=== PATIENT | female | born 1990 | race Caucasian/White ===

== ENCOUNTER 2019-04-04 19:00 | Inpatient (IN) | payer BC, OTHER, SELFPAY ==
[2019-04-04 19:33] VITALS: BMI 33.6
[2019-04-04] MEDS: Lactated Ringers 1,000 ML 50 ML IV (20:00)
[2019-04-04 20:25] LABS: Absolute Lymphocyte Count 1.85 X10^3/uL (0.83-4.51); Absolute Neutrophil Count 8.1 X10^3/uL (2.0-7.7); Basophil# 0.04 X10^3/uL; Basophil% 0.4 % (0-1); Eosinophil# 0.06 X10^3/uL; Eosinophils% 0.5 % (0-5); Hematocrit 33.8 % (37-47); Hemoglobin 11.1 g/dL (12.0-15.0); Lymphocyte # 1.85 X10^3/ul (4.0); Lymphocyte % 16.5 % (19-41); Mean Corp Hgb Conc 32.8 g/dL (32-36); Mean Corpuscular Hgb 27.9 pg (27.0-32.0); Mean Corpuscular Volume 84.9 fL (81-99); Mean Platelet Vol. 9.4 fl (6.2-12.0); Monocyte# 1.01 X10^3/uL; NRBC Flagged by Analyzer 0 % (0-5); Neutrophil # 8.07 X10^3/uL (2.7-7.7); Neutrophil % 72.3 % (47-70); Platelet Count 252 K/mm3 (150-450); RBC Distribution Width CV 14.5 % (11.6-14.6); RBC Distribution Width SD 44.1 fl (35.1-43.9); Red Blood Count 3.98 M/mm3 (4.2-5.4); White Blood Count 11.2 K/mm3 (4.4-11.0)
[2019-04-04] MEDS: miSOPROStol 25 MCG TABLET VAGINAL (20:27)
[2019-04-05] MEDS: miSOPROStol 25 MCG TABLET VAGINAL (00:57)
[2019-04-05] MEDS: 0.9% Normal Saline Single 100 ML IV.SOLN. IY (04:06)
--- NOTE | 2019-04-05 04:12 | HP.PCM_ITS ---
- Problem List (1) Elective induction of labor planned Status: Acute (2) Obesity affecting Status: Acute History Date of Admission: 04/04/19 Final MIRTHA: 04/01/19 Final MIRTHA Source: US <20 weeks Gestational age: 40 Weeks and 4 Days History of this : This is a 29 year-old, G [1], P [0000], at 40 weeks 4 days gestational age for elective induction of labor. No obstetrical complications. Allergies Penicillins [PCN] Allergy (Verified 04/04/19 19:34) Rash Home Medications: Home Medications No122/Iron/Folic Acid [ Multi Tablet] 1 tab PO DAILY 04/04/19 Smoking Status: Never smoker Alcohol: None Number of Fetus(es): 1 NST - FHR Rate Baby A Baseline: 135 Variability:: Moderate Accelerations:: 15 x 15 Decelerations:: None FHR Category:: Category I Uterine Activity:: None History Past Pregnancies: Past Pregnancies Delivery Date Name GA/ Weeks Outcome Route Wt Sex Labor Length Anesthesia Delivery Location Provider FOB Labs: Mom's Labs & Results 04/04/19 04/04/19 20:00 20:00 WBC 11.2 H RBC 3.98 L Hgb 11.1 L Hct 33.8 L MCV 84.9 MCH 27.9 MCHC 32.8 RDW Std Deviation 44.1 H RDW Coeff of Ang 14.5 Plt Count 252 MPV 9.4 Immature Gran % (Auto) 1.300 H Neut % (Auto) 72.3 H Lymph % (Auto) 16.5 L [place] % (Auto) 9.0 Eos % (Auto) 0.5 Baso % (Auto) 0.4 Absolute Neuts (auto) 8.1 H Absolute Lymphs (auto) 1.85 Nucleated RBC % 0 Blood Type O POSITIVE Antibody Screen NEGATIVE Course Did the patient receive Yes care? Labs Blood Type: O RH: POSITIVE RPR/VDRL/Syphilis Nonreactive Rubella status Immune HbSAg Negative Date Done: 09/17/18 Chlamydia Negative Gonorrhea Negative HIV/AIDS Non-Reactive Group B Strep: Negative Current Obstetrical History Gestational Diabetes No Incompetent Cervix No Infertility No IUGR No Macrosomia No Hypertension/Pre-eclampsia No Placenta Previa/Abruption No PTL/PROM No Uterine anomaly No Oligohydramnios No Polyhydramnios No Multiple gestation No Past Medical History Asthma No Diabetes No Hypertension No Heart disease No Mitral valve prolapse No Neurologic/Seizure disorder/ No Migraines Kidney disease No Liver disease No Varicosities No Clotting disorders/Hx of DVT No Thyroid Dysfunction No Other medical diseases No Psychiatric disorders No Major trauma No Abnormal PAP smear No Sleep apnea No Mammogram in the last 2 years No Social History Marital Status: Alleged father haile Hx Smoking No Smoking Status Never smoker How long have you used n/a substances (years)? Expected Delivery Method: Spontaneous Vaginal Review of Systems Constitutional: Denies: Chills, Fever, Weight Change HEENT: Denies: Head Aches, Sinus Congestion, Sinus Drainage Cardiovascular: Denies: Chest Pain, Palpitations Respiratory: Denies: Cough, Shortness of breath at rest, Sputum production Gastrointestinal: Denies: Abdominal Pain, Nausea, Vomiting Genitourinary: Denies: Dysuria Neurological: Denies: Numbness, Tingling, Focal weakness Psychiatric: Denies: Anxiety, Depression, Homicidal Ideations, Suicidal Ideations Physical Exam General: Alert, Oriented x3, Cooperative HEENT: Atraumatic, Normocephalic Cardiovascular: Regular rate, Regular Rhythm, No murmurs Lungs: Clear to auscultation, Normal air movement, No rhonchi, No wheeze Abdomen: Gravid Extremities:: No edema Neurological: Deep Tendon Reflexes 2+/4 and Symmetrical. Negative for: Clonus PLASTIC SURGERY ASSISTANT: Normal external genitalia Estimated gestational size: Appropriate for gestational size Presentation: Cephalic Cervix Dilation (cm): 3 - Soliman catheter placed through cervical os without complications. Station: -2 Effacement (%): 60 Assessment/Plan All Active Problems Elective induction of labor planned (Acute) Obesity affecting (Acute) This is a 29 year-old, G [1], P [000], at 40 weeks 4 Days gestational age. A: Elective Induction of Labor at Term Obesity in P: 1) Admit to labor and delivery. Routine labs. BP elevated, will draw preeclampsia labs 2) IV saline lock 3) Vaginal cytotec for cervical ripening. Soliman catheter placed after 2 doses of cytotec. Will start Pitocin 4 hrs after last cytotec dose. 4) notified of admission and patient status. 5) Planning epidural for pain management 6) GBS negative
[2019-04-05] MEDS: Oxytocin 30 units/NS 500 ml 30 UNITS/500 ML IV.SOLN IV (06:25)
[2019-04-05 07:59] LABS: Hematocrit 35.3 % (37-47); Hemoglobin 11.5 g/dL (12.0-15.0); Mean Corp Hgb Conc 32.6 g/dL (32-36); Mean Corpuscular Hgb 27.6 pg (27.0-32.0); Mean Corpuscular Volume 84.7 fL (81-99); Mean Platelet Vol. 9.3 fl (6.2-12.0); Platelet Count 241 K/mm3 (150-450); RBC Distribution Width CV 14.5 % (11.6-14.6); RBC Distribution Width SD 44.7 fl (35.1-43.9); Red Blood Count 4.17 M/mm3 (4.2-5.4); White Blood Count 12.3 K/mm3 (4.4-11.0)
[2019-04-05 08:11] LABS: AST(SGOT) 14 U/L (15-37); Alanine Aminotransfer ALT/SGPT 15 U/L (13-56); Creatinine, Serum 0.56 mg/dL (0.55-1.02); EST Glomerular Filtration Rate 138 mL/min (>60); Est Glom Filt Rate - Afr Amer 167 mL/min (>60); Estimated Creatinine Clearance 123.72 ml/min; Uric Acid 4.3 mg/dL (2.6-6.0)
[2019-04-05 08:13] LABS: Prothrombin Time (Protime)PT. 13.3 SECONDS (11.7-14.9)
[2019-04-05 08:14] LABS: Partial Thromboplast Time 25.1 Seconds (24.1-36.2)
[2019-04-05] MEDS: Lactated Ringers 500 ML 999 ML IV ×2 (08:56→09:48)
[2019-04-05] MEDS: fentaNYL-bupivacaine (epidural) 100 ML BAG EPIDURAL (09:20)
[2019-04-05] MEDS: Lactated Ringers 1,000 ML 200 ML IV (11:45)
[2019-04-05] MEDS: Oxytocin 30 units/NS 500 ml 30 UNITS/500 ML IV.SOLN 334 UNITS IV (14:15)
--- NOTE | 2019-04-05 14:25 | PCM.OPRPT ---
Vaginal Delivery Maternal Presentation: Elective Induction Method of Induction: Pitocin, Soliman Bulb, Amniotomy, Cytotec Medical Reason for Induction: - - full term Amniotic Membrane Rupture Type: Artificial Amniotic Fluid Description: Clear Final MIRTHA: 04/01/19 Final MIRTHA Source: US <20 weeks Gestational age: 40 Weeks and 4 Days Date of Procedure: 04/05/19 Pre-Operative Diagnosis: labor Post-Operative Diagnosis: same Surgery/ Procedure Performed: Spontaneous Vaginal Delivery Type of Anesthesia: Epidural Description of Procedure: A vigorous female was delivered ROSALIA over a second-degree vaginal laceration. The remainder the was delivered with maternal pushing and gentle traction only in less than 15 seconds. The Pitocin infusion was initiated for active management of the third stage. The cord was clamped and cut after 1 minute. The infant was attended to by the waiting nursing staff. The placenta was delivered spontaneously and intact. The cervix and vagina were intact. The second-degree perineal laceration was repaired with 3-0 Vicryl suture in a running standard fashion. Sponge and needle counts were correct. A vaginal sweep was completed by me. Presentation: ROSALIA Placental Delivery Description: Spontaneous Placenta Disposition: [facility] Cord Vessel Description: 3 Vessels Cord Entanglement: None Drain: Soliman to straight drain Estimated Blood Loss: 400 Infant A gender: Female (1 minute): 9 (5 minute): 9 Episiotomy Description: None Laceration: 2nd degree - vaginal Medications given after delivery: IV Pitocin Complications: None
[2019-04-05] MEDS: Ondansetron 4 MG/2 ML Vial IV (14:51)
[2019-04-05 20:40] VITALS: BP 132/79; PULSE 102; RESP 17; TEMP 37.1
[2019-04-05 23:51] VITALS: BP 129/67; PULSE 92; RESP 16; TEMP 37.2
[2019-04-06] MEDS: Naproxen 250 MG Tablet 500 MG PO ×3 (01:19→15:35)
[2019-04-06 04:25] VITALS: BP 135/64; PULSE 89; RESP 16; TEMP 36.4
--- NOTE | 2019-04-06 08:02 | PCM.PN.OB ---
Patient Problems: Active and Suspected Problems Elective induction of labor planned (Acute) Obesity affecting (Acute) Subjective: Pain well controlled. Average lochia. - Physical Exam Vitals/I&O's: Vital Signs Temp Pulse Resp BP 97.6 F L 89 16 135/64 H 04/06/19 04:25 04/06/19 04:25 04/06/19 04:25 04/06/19 04:25 Oxygen Delivery Method Room Air Weight: 86.092 kg Body Mass Index (BMI) 33.6 Intake and Output for Last 24 Hours 04/04/19 04/05/19 04/06/19 23:59 23:59 23:59 Intake Total 3950.79 / 3950.79 Output Total 800 / 800 500 / 500 Balance 3150.79 / 3150.79 -500 / -500 General: Alert, Cooperative, No apparent distress Laboratory Results 04/05/19 07:45: PT 13.3, INR 1.0, APTT 25.1 04/05/19 07:45: Creatinine 0.56, Estim Creat Clear Calc 123.72, Est GFR (MDRD) Af Amer 167, Est GFR (MDRD) Non-Af 138, Uric Acid 4.3, AST 14 L, ALT 15 Current Medications Acetaminophen (Tylenol) 1,000 mg PO Q8H PRN PRN PRN Reason: Pain Score 1-3/10 Bisacodyl (Dulcolax) 10 mg RECTAL UD PRN PRN Reason: If no BM Dibucaine (Dibucaine) 1 applic TOPICAL TID PRN PRN; Protocol PRN Reason: Discomfort Hydrocortisone (Hytone) 1 applic TOPICAL TID PRN PRN; Protocol PRN Reason: Discomfort Methylergonovine Maleate (Methergine) 0.2 mg IM X1 PRN PRN Reason: Excess bleeding/uterine atony Naproxen (Naprosyn) 500 mg PO Q8H PRN PRN PRN Reason: Pain Score 1-3/10 Last Admin: 04/06/19 01:19 Dose: 500 mg Documented by: Ondansetron HCl (Zofran) 4 mg IV Q4H PRN PRN PRN Reason: Nausea Prochlorperazine Edisylate (Compazine Iv) 10 mg IV Q6H PRN PRN PRN Reason: NAUSEA/VOMITING Senna/Docusate Sodium (Senokot-S, Kiya-Colace) 1 - 2 tablet PO DAILY PRN PRN PRN Reason: Constipation Simethicone (Mylicon) 80 mg PO PCHS PRN PRN Reason: Indigestion/Stomach pain Sodium Chloride () 5 - 15 ml IV UD PRN PRN Reason: SALINE FLUSH Medical Necessity - Tobacco Use Smoking Status: Never smoker Assessment/Plan All Active Problems Elective induction of labor planned (Acute) Obesity affecting (Acute) day #1 status post vaginal delivery. is breast-feeding and doing well. Patient desires discharge home today if okay with pes
--- NOTE | 2019-04-06 08:03 | DCINST_ITS ---
Discharge Diet: No Restrictions Discharge Activity: Return to Normal Activity, May not drive while taking narcotic pain medications., May Shower May resume sexual activity in: 4-6 weeks Additional Activity Instructions:: Nothing in the vagina for 4-6 weeks. You may return to work/school in 6 weeks. Call your doctor if your incision/area has: Continuous Slow Oozing, Sudden Increased Bleeding, Increased Pain/ Swelling, Increased Redness, Foul Smelling Discharge Additional Instructions: If you experience any of the following, contact your healthcare provider. * Bleeding that soaks a pad every hour for 2 hours * Fever 100.4 or higher * Unrelieved incision or abdominal pain * Swelling, redness, discharge or bleeding from your incision or episiotomy site * Your incision begins to separate * Problems urinating (including inability to urinate or burning while urinating). * Visual changes * Severe headache * Flu-like symptoms * Pain or redness in one of both of your breasts * Pain, warmth, tenderness or swelling in your legs, especially the calf area * Frequent nausea and vomiting * Symptoms of depression or anxiety If you experience any of the following, call 911 or go to the nearest Emergency Room. * Chest pain * Problems breathing * Seizure activity * Partial or complete paralysis of a body part, slurred speech, weakness or drooping of the face, or a sudden inability to walk or hold your balance Allergies/Adverse Reactions: Allergies Penicillins [PCN] Allergy (Verified 04/04/19 19:34) Rash Medications to take at Discharge No122/Iron/Folic Acid [ Multi Tablet] 1 tab PO DAILY 04/04/19 Please Follow Up With: Phoebe Cadena MD - [phone] When: Call to make an appointment with your doctor's office in 1-2 adn 6 weeks or as needed Primary Care Physician: Care Physician,No Primary [Primary Care Provider] - Test Results: Test results from this visit will be discussed in further detail at your follow- up appointment, if applicable.
--- NOTE | 2019-04-06 08:03 | PCM.DCVAG ---
Discharge Diet: No Restrictions Discharge Activity: Return to Normal Activity, May not drive while taking narcotic pain medications., May Shower May resume sexual activity in: 4-6 weeks Additional Activity Instructions:: Nothing in the vagina for 4-6 weeks. You may return to work/school in 6 weeks. Call your doctor if your incision/area has: Continuous Slow Oozing, Sudden Increased Bleeding, Increased Pain/ Swelling, Increased Redness, Foul Smelling Discharge Additional Instructions: If you experience any of the following, contact your healthcare provider. Bleeding that soaks a pad every hour for 2 hours Fever 100.4 or higher Unrelieved incision or abdominal pain Swelling, redness, discharge or bleeding from your incision or episiotomy site Your incision begins to separate Problems urinating (including inability to urinate or burning while urinating). Visual changes Severe headache Flu-like symptoms Pain or redness in one of both of your breasts Pain, warmth, tenderness or swelling in your legs, especially the calf area Frequent nausea and vomiting Symptoms of depression or anxiety If you experience any of the following, call 911 or go to the nearest Emergency Room. Chest pain Problems breathing Seizure activity Partial or complete paralysis of a body part, slurred speech, weakness or drooping of the face, or a sudden inability to walk or hold your balance Allergies/Adverse Reactions: Allergies Penicillins [PCN] Allergy (Verified 04/04/19 19:34) Rash Medications to take at Discharge No122/Iron/Folic Acid [ Multi Tablet] 1 tab PO DAILY 04/04/19 Please Follow Up With: Phoebe Cadena MD - [phone] When: Call to make an appointment with your doctor's office in 1-2 adn 6 weeks or as needed Primary Care Physician: Care Physician,No Primary [Primary Care Provider] - Test Results: Test results from this visit will be discussed in further detail at your follow-up appointment, if applicable.
[2019-04-06 09:20] VITALS: BP 120/63; PULSE 95; RESP 16; TEMP 36.3; O2SAT 98
[2019-04-06 12:40] VITALS: BP 132/74; PULSE 80; TEMP 36.3; O2SAT 100
[2019-04-06 16:30] VITALS: BP 128/85; PULSE 73; TEMP 36.4; O2SAT 96
== END 2019-04-06 17:50 | disposition home or self-care (01) | DRG 807 ==
PROVIDERS: Advanced Practice Midwife; Admitting Provider Obstetrics & Gynecology; Referring Provider Obstetrics & Gynecology; Visit Provider Obstetrics & Gynecology
DX: O99.214 Obesity complicating childbirth (principal); E66.9 Obesity, unspecified; O70.1 Second degree perineal laceration during delivery; Z3A.40 40 weeks gestation of pregnancy; Z37.0 Single live birth
CPT/HCPCS: 59025; 59050; 82565; 84450; 84460; 84550; 85025; 85027; 85610; 85730; 86850; 86900; 86901; J7120; J2405

== ENCOUNTER 2021-06-15 06:50 | Inpatient (IN) | payer BC, OTHER, SELFPAY ==
[2021-06-15] VITALS (46 sets, daily range): BP systolic 111–144; BP diastolic 54–92; PULSE 74–108; TEMP 36.6–37.1; O2SAT 81–100; BMI 31.6
[2021-06-15] MEDS: Lactated Ringers 1,000 ML 200 ML IV ×3 (09:35→19:51)
[2021-06-15 09:53] LABS: Absolute Lymphocyte Count 1.78 X10^3/uL (0.83-4.51); Absolute Neutrophil Count 7.4 X10^3/uL (2.0-7.7); Basophil# 0.06 X10^3/uL; Basophil% 0.6 % (0-1); Eosinophil# 0.08 X10^3/uL; Eosinophils% 0.8 % (0-5); Hematocrit 37.2 % (37-47); Lymphocyte # 1.78 X10^3/ul (0.83-4.51); Lymphocyte % 17.6 % (19-41); Mean Corp Hgb Conc 34.9 g/dL (32-36); Mean Corpuscular Hgb 29.3 pg (27.0-32.0); Mean Platelet Vol. 9.7 fl (6.2-12.0); Monocyte# 0.64 X10^3/uL; Monocyte% 6.3 % (0-10); NRBC Flagged by Analyzer 0 % (0-5); Neutrophil # 7.38 X10^3/uL (2.7-7.7); Neutrophil % 73.1 % (47-70); Platelet Count 288 K/mm3 (150-450); RBC Distribution Width CV 14.4 % (11.6-14.6); RBC Distribution Width SD 43.7 fl (35.1-43.9); Red Blood Count 4.43 M/mm3 (4.2-5.4); White Blood Count 10.1 K/mm3 (4.4-11.0)
[2021-06-15] MEDS: 0.9% Normal Saline Single 100 ML IV.SOLN. INTRA-UTER (10:06)
[2021-06-15] MEDS: Oxytocin 30 units/NS 500 ml 30 UNITS/500 ML IV.SOLN IV (12:45)
[2021-06-15] MEDS: Lactated Ringers 500 ML 999 ML IV ×2 (14:04→20:07)
[2021-06-15] MEDS: fentaNYL-bupivacaine (epidural) 100 ML BAG EPIDURAL ×2 (15:39→19:51)
--- NOTE | 2021-06-15 16:14 | PCM.HP.OB ---
HPI - General General Date of Admission: 06/15/21 HPI Narrative GILLIAN GUTIERREZ, is a 31 F 2 para 1-0-0-1 who presents at 39 6/7 weeks 1 day gestation for elective induction of labor. She denies any vaginal bleeding leaking fluid. She has had good movement. has been complicated today by nausea vomiting the first trimester that required medications. Maternal Data Information Final MIRTHA: 06/16/21 PFSH PFSH Medical History no medical history Home Medications [id number] acid 1 tab PO DAILY 04/04/19 [History Last Taken 03/28/19 08:00] Allergy/AdvReac Type Severity Reaction Status Date / Time Penicillins [PCN] Allergy Rash Verified 06/15/21 07:57 Family History no significant family his Surgical History no surgical history Social History Smoking Status: Never smoker History Elective abortions Hx Para 1 Spontaneous abortions Hx # Term Pregnancies Ectopic pregnancies Hx # Pregnancies Multiple births # of living children ROS Constitutional Constitutional: Denies fatigue, fever(s) or malaise Eyes Eyes: Denies change in vision ENT HEENT: Denies dizziness or headache(s) Cardiovascular Cardiovascular: Denies chest pain, dyspnea or lightheadedness Respiratory/Chest Respiratory/Chest: Denies cough or dyspnea Gastrointestinal Gastrointestinal: Denies change in bowel habits Genitourinary Genitourinary: Denies burning urination or genital lesions Integumentary Integumentary: Denies rash Neurologic Neurologic: Denies confusion, dizziness, headache(s), numbness or weakness Vital Signs Vital Signs Vital Signs: 06/15/21 09:11 06/15/21 12:00 06/15/21 12:01 Temperature Temperature Source Temporal Temporal Pulse Rate 82 75 Blood Pressure 144/87 H 122/79 H BP Systolic 144 122 BP Diastolic 87 79 Pulse Ox 06/15/21 13:58 06/15/21 15:14 06/15/21 15:19 Temperature 97.8 F Temperature Source Temporal Pulse Rate 77 74 83 Blood Pressure 131/73 H 144/85 H BP Systolic 131 144 BP Diastolic 73 85 Pulse Ox 99 100 06/15/21 15:24 06/15/21 15:29 06/15/21 15:34 Temperature Temperature Source Pulse Rate 84 91 108 H Blood Pressure 144/92 H 136/85 H 140/82 H BP Systolic 144 136 140 BP Diastolic 92 85 82 Pulse Ox 98 99 99 06/15/21 15:39 06/15/21 15:44 06/15/21 15:49 Temperature 98.0 F Temperature Source Temporal Temporal Pulse Rate 106 H 89 108 H Blood Pressure 132/73 H 131/66 H 132/72 H BP Systolic 132 131 132 BP Diastolic 73 66 72 Pulse Ox 99 99 99 06/15/21 15:54 06/15/21 15:59 06/15/21 16:04 Temperature Temperature Source Pulse Rate 84 86 101 H Blood Pressure 127/67 H 135/69 H BP Systolic 127 135 BP Diastolic 67 69 Pulse Ox 98 98 100 06/15/21 16:09 06/15/21 16:11 Temperature Temperature Source Pulse Rate 91 Blood Pressure BP Systolic BP Diastolic Pulse Ox 99 81 Weight Weight: 80.9 kg Body Mass Index (BMI) 31.6 Physical Exam Const alert and no apparent distress General Appearance: cooperative HEENT normocephalic Resp normal respiratory effort Cardio regular rate GI soft to palpation GI Narrative: gravid, nontender, appropriate for gestational age Extremity no calf tenderness General Extremity: edema Skin no wounds Rashes: No rashes noted Psych activity/motor behavior normal Labs Labs Labs: Blood Type O POSITIVE Antibody Screen NEGATIVE Hct 37.2 % (37-47) Hgb 13.0 g/dL (12.0-15.0) Rhogam given: No Assessment & Plan (1) Elective induction of labor planned: (2) 39 weeks gestation of : PLAN: Risk benefits and alternatives to induction labor him discussed with patient, questions were answered to her satisfaction she desires to proceed. Estimated weight is less than 4500 g clinically and pelvis clinically adequate to expect vaginal delivery. May have epidural, IV medications or nitrous as needed for pain control. At approximately 10:30 AM a Soliman catheter was placed over the cervix in the usual sterile fashion over a stylette. The bulb was inflated to 30 cc and the patient and fetus tolerated the procedure well. Soliman is out now patient is comfortable with epidural artificial rupture of membranes was performed with return of moderate amount of clear fluid. (3) Encounter for supervision of other normal , third trimester:
[2021-06-15] MEDS: Amnioinfusion- 0.9% NS 1,000 ML IV.SOLN. 1000 ML INTRA-UTER (21:16)
[2021-06-15] MEDS: Oxytocin 30 units/NS 500 ml 30 UNITS/500 ML IV.SOLN 334 UNITS IV (22:27)
--- NOTE | 2021-06-15 22:34 | EX.PCM.OBRPT ---
Assessment & Plan (1) 39 weeks gestation of : (2) (spontaneous vaginal delivery): Maternal Data Information Final MIRTHA: 06/16/21 Gestational age: 39 6/7 Vaginal Delivery Maternal Presentation Maternal Presentation: Elective Induction Type of Induction: Pitocin, Soliman Bulb and Amniotomy Operative Information Date of Procedure: 06/15/21 Pre-Operative Diagnosis: labor Post-Operative Diagnosis: same Surgery / Procedure Performed: Spontaneous Vaginal Delivery Type of Anesthesia: Epidural Special Medications: none Drain: Soliman to straight drain Estimated Blood Loss: 300 Time of Delivery: 22:23 Findings Description of Procedure: A vigorous female was delivered ROSALIA over very small first-degree perineal laceration. The anterior shoulder was delivered through a tight nuchal cord. The remainder the infant was delivered with maternal pushing and gentle traction only in less than 15 seconds. The cord was then reduced. The Pitocin infusion was initiated for active management of the third stage. The cord was clamped and cut after 1 minute. The was attended to by the waiting nursing staff. The placenta was delivered spontaneously and intact. The cervix and vagina were intact. A single [id number] 3-0 Vicryl suture was placed in the small perineal laceration and it was hemostatic. Sponge and needle counts were correct. A vaginal sweep was completed by me. Presentation: AMAYA Amniotic Membrane Rupture Type: Artificial Amniotic Fluid Description: Clear Placental Delivery Description: Spontaneous Placenta Disposition: [facility] Cord Vessel Description: 3 Vessels Cord Entanglement: Around neck x 1, tight Nuchal Cord Compression: Without compression Infant A Gender: Female ([place]) (1 minute): 9 (5 minute): 9 Delayed Cord Clamping: Yes Post Vaginal Delivery Medications Given After Delivery: IV Pitocin Episiotomy Description: None Laceration: 1st degree Complication Complications: None
[2021-06-16] VITALS (21 sets, daily range): BP systolic 121–145; BP diastolic 70–90; PULSE 68–95; RESP 16–18; TEMP 36.3–37.4; O2SAT 92–99
--- NOTE | 2021-06-16 05:26 | NURSING ---
late entry due to patient care. epidural catheter removed without difficulty. blue tip intact.
[2021-06-16] MEDS: Ibuprofen 600 MG Tablet PO ×2 (08:59→15:01)
[2021-06-16] MEDS: Acetaminophen 500 MG Tablet 1000 MG PO ×2 (09:24→17:50)
--- NOTE | 2021-06-16 10:07 | PCM.PN.OB ---
Subjective Subjective Pain well controlled. Average lochia. Objective Data Objective Data Vital Signs: Vital Signs Temp Pulse Resp BP Pulse Ox 99.4 F H 71 16 145/89 H 92 06/16/21 09:30 06/16/21 09:30 06/16/21 09:30 06/16/21 09:30 06/16/21 00:15 Oxygen Delivery Method Room Air Weight: 80.9 kg Body Mass Index (BMI) 31.6 Intake & Output: Intake and Output for Last 24 Hours 06/14/21 06/15/21 06/16/21 23:59 23:59 23:59 Intake Total 3576.40 / 3576.40 333 / 333 Output Total 600 / 600 Balance 3576.40 / 3576.40 -267 / -267 Lab / Micro Data Result Diagrams: 06/15/21 09:25 Labs: Laboratory Results - last 24 hr 06/15/21 09:25: Blood Type O POSITIVE, Antibody Screen NEGATIVE Micro: Microbiology 06/15/21 08:40 Nasal Secretion SARS-CoV-2 Antigen (Rapid) - Final Physical Exam Const alert and no apparent distress Narrative: Fundus firm, below umbilicus. Assessment & Plan (1) (spontaneous vaginal delivery): PLAN: day #1. Patient and are doing well. Desires discharge home tonight.
--- NOTE | 2021-06-16 10:08 | PCM.DC.SUM ---
Providers Date of Admission: 06/15/21 Primary Care Physician: Jodi Primary Care Phys Reason For Visit: INDUCTION Diagnosis Discharge Diagnosis (1) (spontaneous vaginal delivery): Status: Acute Code(s): O80 - Encounter for full-term uncomplicated delivery Medications at Discharge Home Medications [id number] acid 1 tab PO DAILY 04/04/19 Hospital Course Summary of Care Provided Hospital Course: 2 para 1 female admitted at 39-6/7 weeks for elective induction of labor. Vaginal delivery was performed without complication on 06/15/2021. On day #1 the was breast-feeding well and the patient was doing well and she desired discharge home with routine instructions. Weight / BMI Weight Weight: 80.9 kg Body Mass Index (BMI) 31.6 ABG / Lab / Microbiology Data Result Diagrams: 06/15/21 09:25 Laboratory: Laboratory Results - last 24 hr 06/15/21 09:25: Blood Type O POSITIVE, Antibody Screen NEGATIVE Microbiology: Microbiology 06/15/21 08:40 Nasal Secretion SARS-CoV-2 Antigen (Rapid) - Final D/C Instructions May resume sexual activity in: 6 weeks Please Follow Up With: Phoebe Cadena MD When: Follow up with our office in 1-2 and 6 weeks or as needed. [phone] Meaningful Use Info Meaningful Use Diagnoses (Choose all that apply): None applicable Discharge Plan Admission Admit Date/Time: 06/15/21 06:50 Primary Reason for Your Visit: Vaginal delivery Attending Provider: Phoebe Cadena Primary Care Provider: Care Jodi Oliveros Primary Discharge Orders/Prescriptions Prescriptions: No Action [id number] acid 1 EACH tablet 1 tab PO DAILY RF: 0 Referrals / Follow Up: Care Physician,Jodi Primary [Primary Care Provider] - Disposition Disposition (needs filled in before D/C Order can be placed): Home, Self Care
--- NOTE | 2021-06-16 23:30 | NURSING ---
Dc instructions given, iv was already out, reminded pt to call tomorrow for time to have bilirubin rechecked on . pt verbalized understanding.
== END 2021-06-16 23:45 | disposition home or self-care (01) | DRG 807 ==
PROVIDERS: Admitting Provider Obstetrics & Gynecology; Visit Provider Obstetrics & Gynecology
DX: O69.81X0 Labor and delivery complicated by cord around neck, without compression, not applicable or unspecified (principal); Z37.0 Single live birth; O70.0 First degree perineal laceration during delivery; Z3A.39 39 weeks gestation of pregnancy
CPT/HCPCS: 59025; 59050; 85025; 86850; 86900; 86901; 87426; 99218; J7030; J7120; G0378

== ENCOUNTER 2023-09-09 19:15 | Inpatient (IN) | payer OTHER, SELFPAY ==
[2023-09-09 19:35] VITALS: BP 135/87; PULSE 100
[2023-09-09 19:36] VITALS: PULSE 100; O2SAT 99
[2023-09-09 19:37] VITALS: RESP 16; TEMP 36.4
[2023-09-09 19:58] VITALS: BMI 32.5
[2023-09-09] MEDS: Lactated Ringers 1,000 ML 50 ML IV (20:00)
[2023-09-09 20:19] LABS: Absolute Lymphocyte Count 1.69 X10^3/uL (0.83-4.51); Absolute Neutrophil Count 7.5 X10^3/uL (2.0-7.7); Basophil# 0.03 X10^3/uL; Basophil% 0.3 % (0-1); Eosinophil# 0.05 X10^3/uL; Eosinophils% 0.5 % (0-5); Hemoglobin 11.6 g/dL (12.0-15.0); Lymphocyte # 1.69 X10^3/ul (0.83-4.51); Lymphocyte % 16.8 % (19-41); Mean Corp Hgb Conc 33.1 g/dL (32-36); Mean Corpuscular Hgb 28.2 pg (27.0-32.0); Mean Corpuscular Volume 85.2 fL (81-99); NRBC Flagged by Analyzer 0 % (0-5); Neutrophil % 74.5 % (47-70); Platelet Count 229 K/mm3 (150-450); RBC Distribution Width CV 13.7 % (11.6-14.6); RBC Distribution Width SD 42.2 fl (35.1-43.9); Red Blood Count 4.11 M/mm3 (4.2-5.4); White Blood Count 10.1 K/mm3 (4.4-11.0)
[2023-09-09 20:38] VITALS: BP 133/75; PULSE 101; O2SAT 96
--- NOTE | 2023-09-09 20:58 | PCM.HP.OB ---
HPI - General General Date of Admission: 09/09/23 HPI Narrative GILLIAN GUTIERREZ, is a 33 F G P2 P1 who presents for elective induction of labor. Maternal Data Information MIRTHA Calculator Estimated Delivery Date Method Current WG Current Estimate 09/11/23 Manual 39w 5d PFSH PFSH Medical History (spontaneous vaginal delivery) Allergy/AdvReac Type Severity Reaction Status Date / Time Penicillins (PCN) Allergy Rash Verified 09/09/23 20:20 Social History Smoking Status: Never smoker History Elective abortions Hx Para 2 Spontaneous abortions Hx # Term Pregnancies Ectopic pregnancies Hx # Pregnancies Multiple births # of living children NST FHR Rate Baby A Baseline: 135 Variability:: Moderate Accelerations:: 15 x 15 Decelerations:: None NST Reactive:: Yes FHR Category:: Category I Uterine Activity:: irritability ROS Eyes Eyes: Denies blurry vision, change in vision or spots in vision ENT HEENT: Denies dizziness or headache(s) Cardiovascular Cardiovascular: Denies abdominal pain, chest pain or dyspnea Respiratory/Chest Respiratory/Chest: Denies cough, dyspnea, shortness of breath at rest or shortness of breath with exertion Gastrointestinal Gastrointestinal: Denies abdominal pain, diarrhea or vomiting Genitourinary Genitourinary: Denies change in urinary stream, difficulty urinating or dysuria Musculoskeletal Musculoskeletal: Reports none Integumentary Integumentary: Denies rash Neurologic Neurologic: Denies dizziness, headache(s), memory loss or weakness Psychiatric Psychiatric: Reports none Vital Signs Vital Signs Vital Signs: 09/09/23 19:35 09/09/23 19:35 09/09/23 19:36 Temperature Temperature Source Pulse Rate 100 100 Respiratory Rate Blood Pressure 135/87 H BP Systolic 135 BP Diastolic 87 Pulse Ox 09/09/23 19:36 09/09/23 19:37 09/09/23 19:37 Temperature Temperature Source Temporal Pulse Rate Respiratory Rate 16 Blood Pressure BP Systolic BP Diastolic Pulse Ox 99 09/09/23 19:37 09/09/23 20:38 09/09/23 20:38 Temperature 97.6 F L Temperature Source Pulse Rate 101 H Respiratory Rate Blood Pressure 133/75 H BP Systolic 133 BP Diastolic 75 Pulse Ox 09/09/23 20:38 Temperature Temperature Source Pulse Rate Respiratory Rate Blood Pressure BP Systolic BP Diastolic Pulse Ox 96 Weight Weight: 183 lb 12.8 oz Body Mass Index (BMI) 32.5 Physical Exam Const alert, oriented x3 and no apparent distress General Appearance: cooperative Orientation / Consciousness: awake Exam Limitations: no limitations HEENT normocephalic Head and Scalp: normal to inspection Eyes General Eye: normal appearance of both eyes Neck full ROM and no lymphadenopathy Lymph Lymphatic: no lymphadenopathy noted Chest inspection of chest normal Resp normal respiratory effort, normal air movement and clear to auscultation bilaterally Effort and Inspection: able to speak in complete sentences and symmetric chest movement Cardio regular rate and regular rhythm GI normal to inspection, nondistended, normoactive bowel sounds Manual OB Exam: presentation cephalic Back/Spine normal ROM Extremity full ROM and no calf tenderness Skin no rashes or lesions noted General Skin Exam: no breakdown Neuro oriented x3 and CN's II-XII intact bilaterally Psych mental status grossly normal and thought process normal Labs Labs Labs: Blood Type O POSITIVE Antibody Screen NEGATIVE Hct 35.0 % (37-47) L Hgb 11.6 g/dL (12.0-15.0) L Syphilis Total Ab Pending Rhogam given: No GBS negative Assessment & Plan (1) Encounter for elective induction of labor: (2) 39 weeks gestation of : PLAN: Plan GBS negative CE 1.5/40/-3 very posterior and difficult to reach Cytotec 50 mcg PO x 1 dose now and reevaluate in 6 hours Ambulate and position changes Anticipate placement of lin catheter in the AM Dr. Barnett notified of admission and is collaborating physician
[2023-09-09] MEDS: miSOPROStol 50 MCG TABLET PO (22:42)
[2023-09-09 23:22] VITALS: PULSE 98; O2SAT 99
[2023-09-09 23:27] VITALS: BP 121/75; PULSE 97
[2023-09-10] VITALS (36 sets, daily range): BP systolic 104–163; BP diastolic 56–90; PULSE 50–117; RESP 15–16; TEMP 36.1–36.8; O2SAT 98–100
[2023-09-10] MEDS: 0.9% Normal Saline Single 100 ML IV.SOLN. INTRA-UTER (06:45)
[2023-09-10] MEDS: Oxytocin 15 Units/NS 250ml 15 UNITS/250 ML IV.SOLN 2 UNITS IV (06:53)
--- NOTE | 2023-09-10 06:58 | PCM.PN.CNM ---
Subjective Subjective Patient seen at bedside. Feeling contractions. Coping at this time. Objective Data Objective Data Vital Signs: Vital Signs Temp Pulse Resp BP Pulse Ox 97.0 F L 69 16 148/76 H 99 09/10/23 06:23 09/10/23 06:26 09/10/23 06:23 09/10/23 06:26 09/09/23 23:22 Weight: 183 lb 12.8 oz Body Mass Index (BMI) 32.5 Intake & Output: Intake and Output for Last 24 Hours 09/08/23 09/09/23 09/10/23 23:59 23:59 23:59 Output Total 50 / 50 Balance -50 / -50 Lab / Micro Data 09/09/23 20:00 Labs: Laboratory Results - last 24 hr 09/09/23 20:00: WBC 10.1, RBC 4.11 L, Hgb 11.6 L, Hct 35.0 L, MCV 85.2, MCH 28.2, MCHC 33.1, RDW Std Deviation 42.2, RDW Coeff of Ang 13.7, Plt Count 229, MPV 10.0, Immature Gran % (Auto) 0.900, Neut % (Auto) 74.5 H, Lymph % (Auto) 16.8 L, [place] % (Auto) 7.0, Eos % (Auto) 0.5, Baso % (Auto) 0.3, Absolute Neuts (auto) 7.5, Absolute Lymphs (auto) 1.69, Nucleated RBC % 0, Blood Type O POSITIVE, Antibody Screen NEGATIVE Assessment & Plan (1) 39 weeks gestation of : (2) Encounter for elective induction of labor: (3) Obesity affecting : PLAN: Plan Cat. 1 tracing CE 260/-3 Lin bulb placed without difficulty and filled with 30 cc N/S AROM for clear fluid with placement of lin bulb Pitocin 2mu/min and increased per policy Epidural/ pain medication when indicated Anticipate
[2023-09-10] MEDS: Lactated Ringers 1,000 ML 999 ML IV (07:33)
[2023-09-10] MEDS: fentaNYL-bupivacaine (epidural) 100 ML BAG EPIDURAL (09:05)
--- NOTE | 2023-09-10 12:24 | EX.PCM.OBRPT ---
Maternal Data Information MIRTHA Calculator Estimated Delivery Date Method Current WG Current Estimate 09/11/23 Manual 39w 6d Final MIRTHA: 09/11/23 Gestational age: 39 6/7 Vaginal Delivery Maternal Presentation Maternal Presentation: Elective Induction Type of Induction: Pitocin, Soliman Bulb, Amniotomy and Cytotec Operative Information Date of Procedure: 09/10/23 Pre-Operative Diagnosis: labor Post-Operative Diagnosis: same Surgery / Procedure Performed: Spontaneous Vaginal Delivery Type of Anesthesia: Epidural Special Medications: none Drain: - (none) Estimated Blood Loss: 200 Time of Delivery: 12:04 Findings Description of Procedure: A vigorous female infant was delivered ROSALIA over an intact perineum. A loose nuchal cord ?1 was easily reduced. The remainder the infant was delivered with maternal pushing and gentle traction only in less than 15 seconds. The Pitocin infusion was initiated for active management of the third stage. The cord was clamped and cut after cord pulsations ceased. The infant was attended to by the waiting nursing staff. The placenta was delivered spontaneously and intact. The cervix and vagina were intact. Sponge and needle counts were correct. A vaginal sweep was completed by me. Presentation: ROSALIA Amniotic Membrane Rupture Type: Artificial Amniotic Fluid Description: Clear Placental Delivery Description: Spontaneous Placenta Disposition: [facility] Cord Vessel Description: 3 Vessels Cord Entanglement: Around neck x 1, loose Nuchal Cord Compression: Without compression Infant A Gender: Female (1 minute): 8 (5 minute): 9 Delayed Cord Clamping: Yes Post Vaginal Delivery Medications Given After Delivery: IV Pitocin Episiotomy Description: None Laceration: None Complication Complications: None
[2023-09-10] MEDS: Oxytocin 15 Units/NS 250ml 15 UNITS/250 ML IV.SOLN 83 UNITS IV (12:45)
[2023-09-10 13:02] LABS: Syphilis Antibodies Non-reactive
[2023-09-10] MEDS: Acetaminophen 500 MG Tablet 1000 MG PO (20:44)
[2023-09-10] MEDS: Ibuprofen 600 MG Tablet PO (21:57)
[2023-09-11] VITALS (14 sets, daily range): BP systolic 138–174; BP diastolic 74–99; PULSE 65–83; RESP 14–16; TEMP 36.3–36.8; O2SAT 97–99
--- NOTE | 2023-09-11 08:45 | PCM.DC.SUM ---
Providers Date of Admission: 09/09/23 Primary Care Physician: Jodi Primary Care Phys Reason For Visit: VAGINAL DELIVERY Diagnosis Discharge Diagnosis (1) 39 weeks gestation of : Status: Acute Code(s): Z3A.39 - 39 weeks gestation of (2) Encounter for elective induction of labor: Status: Acute Code(s): Z34.90 - Encounter for supervision of normal , unspecified, unspecified trimester (3) Obesity affecting : Status: Acute Code(s): O99.210 - Obesity complicating , unspecified trimester Hospital Course Procedures - (Spontaneous vaginal delivery on 09/10/2023) Summary of Care Provided Hospital Course: 33-year-old multigravida female admitted at 39+ gestational weeks for elective induction of labor due to maternal discomfort. Patient had Cytotec, Soliman, artificial rupture membranes and Pitocin induction of labor. She had a spontaneous vaginal delivery on 09/10/2023 without complications. On day #1 she was ambulating, urinating tolerating regular diet. The was breast-feeding and doing well. She desired discharge home with routine instructions and follow-up. She has a follow-up in our office next week Physical Exam Narrative Average lochia. Some cramping hernan. w/ nursing. No other c/o Const alert and no apparent distress Narrative: Fundus firm, below umbilicus. Weight / BMI Weight Weight: 83.37 kg Body Mass Index (BMI) 32.5 ABG / Lab / Microbiology Data 09/09/23 20:00 Laboratory: Laboratory Results - last 24 hr 09/09/23 20:00: Syphilis Total Ab Non-reactive D/C Instructions Discharge Diet: No restrictions May resume sexual activity in: 6 weeks Call your doctor if your incision/area has: Continuous Slow Oozing, Sudden Increased Bleeding, Foul Smelling Discharge and Swelling at the incision site Call your doctor if you observe: Fever of 101 or Higher and Inability to urinate Please Follow Up With: Phoebe Cadena MD When: Follow up with our office in 1-2 and 6 weeks or as needed. [phone] Meaningful Use Info Meaningful Use Meaningful Use Diagnoses (Choose all that apply): None applicable Ischemic Stroke Statin Dosing Therapy Reference: STATIN DOSE THERAPY REFERENCE: * Patients > 75 years receive moderate or high dose statin therapy. * Patients 75 years or YOUNGER should receive HIGH intensity statin dose unless contraindicated. You will be required to document reason for non-treatment if statin daily dose does not meet guidelines. HIGH DOSE STATIN THERAPY DAILY Atorvastatin > than or = to 40 mg Rosuvastatin > than or = to 20 mg Amlodipine + Atorvastatin > than or = to 2.5/40 mg Ezetimibe + Simvastatin 10/80 mg Simvastatin 80mg Discharge Plan Admission Admit Date/Time: 09/09/23 19:15 Primary Reason for Your Visit: Vaginal delivery Attending Provider: Phoebe Cadena Primary Care Provider: Care Physician,Jodi Primary Discharge Orders/Prescriptions Referrals / Follow Up: Care Physician,No Primary [Primary Care Provider] - Disposition Disposition (needs filled in before D/C Order can be placed): Home, Self Care
[2023-09-11] MEDS: Ibuprofen 600 MG Tablet PO (08:48)
== END 2023-09-11 13:10 | disposition home or self-care (01) | DRG 807 ==
PROVIDERS: Admitting Provider Obstetrics & Gynecology; Referring Provider Advanced Practice Midwife; Visit Provider Obstetrics & Gynecology
DX: O75.0 Maternal distress during labor and delivery (principal); Z37.0 Single live birth; O69.81X0 Labor and delivery complicated by cord around neck, without compression, not applicable or unspecified; O99.214 Obesity complicating childbirth; Z3A.39 39 weeks gestation of pregnancy
CPT/HCPCS: 59025; 59050; 85025; 86780; 86850; 86900; 86901; 99221; J7120; G0378